=== PATIENT | male | born 1955 | race Caucasian/White ===

== ENCOUNTER 2020-07-24 19:16 | Emergency (ER) | payer OTHER ==
[~2020-07-24] VITALS: Ht 172.7 cm; Wt 93.4 kg
[2020-07-24 19:39] VITALS: BP 144/82
== END 2020-07-24 21:09 | disposition home or self-care (01) ==
LOC: ER 19:18
DX: H61.23 Impacted cerumen, bilateral (principal); Z88.1 Allergy status to other antibiotic agents
CPT/HCPCS: 99281